=== PATIENT | male | born 1980 | race Caucasian/White ===

== ENCOUNTER → 2024-02-04 | Outpatient (CLI) | payer OTHER, SELFPAY ==
--- NOTE | 2024-02-04 10:06 | XR_ITS ---
EXAMINATION: Cervical spine, 5 views Technique: Cervical spine AP, AP odontoid, lateral, bilateral obliques, 5 views Exam date and time: February 04, 2024 1120 hours INDICATIONS: Neck pain beginning one month ago. FINDINGS: Satisfactory alignment cervical vertebral bodies No cervical fracture No neural foraminal stenosis No cervical disc narrowing Intact odontoid IMPRESSION: No cervical fracture No significant arthritic change
== END | disposition home or self-care (01) ==
LOC: CDIM 09:45
PROVIDERS: PCP Family Medicine; Referring Provider Orthopaedic Surgery; Visit Provider Orthopaedic Surgery
DX: M54.2 Cervicalgia (principal)
CPT/HCPCS: 72050

== ENCOUNTER → 2024-11-13 | Outpatient (CLI) | payer OTHER, SELFPAY ==
[2024-11-13 12:20] LABS: Collection Type, Urine Clean Catch; Squamous Epithelial Cell,Urine 0 /hpf (0-5)
[2024-11-13 13:06] LABS: Basophils # (Auto) 0.0 Thou/mm3 (0.0-0.2); Basophils % (Auto) 0 % (0-2.5); Eosinophils # (Auto) 0.2 Thou/mm3 (0.0-0.5); Eosinophils % (Auto) 2 % (0-10); Hematocrit 46.1 % (41.0-53.0); Hemoglobin 16.3 g/dL (13.5-16.0); Immature Granulocytes Auto 0.01 Thou/mm3 (0.00-0.00); Lymphocytes # (Auto) 2.2 Thou/mm3 (1.0-4.8); Lymphocytes % (Auto) 34 % (10-50); Mean Corpuscular HGB Conc 35.4 g/dl (31.0-37.0); Mean Corpuscular Hemoglobin 30.8 pg (25.0-35.0); Mean Corpuscular Volume 87 fL (80-100); Monocytes # (Auto) 0.5 Thou/mm3 (0.0-0.8); Monocytes % (Auto) 8 % (0-12); Neutrophils # (Auto) 3.5 Thou/mm3 (1.8-7.7); Neutrophils % (Auto) 55 % (37-80); Nucleated Red Blood Cell # 0.00 Thou/mm3 (0.00-0.00); Nucleated Red Blood Cell % 0 /100 WBC (0); Platelet Count 300 Thou/mm3 (140-440); RDW Standard Deviation 39.3 fL (35.1-43.9); Red Blood Count 5.30 Miln/mm3 (4.50-5.90); White Blood Count 6.3 Thou/mm3 (3.8-10.6)
[2024-11-13 13:10] LABS: Bilirubin,Urine Negative (Negative); Blood,Urine Negative (Negative); Clarity,Urine Clear (Clear/Hazy); Color,Urine Lt-Yellow (Lt Yel-Yel); Glucose, Urine Negative (Negative); Ketones,Urine Negative (Negative); Leukocyte Esterase,Urine Negative (Negative); Nitrite,Urine Negative (Negative); PH,Urine 7.0 (5.0-7.0); Protein,Urine Negative (Neg - Trace); RBC,Urine < 1 /hpf (0-3); Specific Gravity,Urine 1.012 (1.001-1.035); Urobilinogen,Urine Negative mg/dL (0.0-1.0); WBC,Urine < 1 /hpf (0-5)
[2024-11-13 13:28] LABS: Alanine Aminotransferase 31 U/L (10-49); Albumin, Serum 4.6 gm/dL (3.5-5.0); Albumin/Globulin Ratio 2.0 (1.2-2.2); Alkaline Phosphatase 100 U/L (46-116); Anion Gap 9 (7-16); Aspartate Amino Transferase 24 U/L (0-34); BUN/Creatinine Ratio 10 Ratio (12-20); Bilirubin,Total 0.7 mg/dL (0.3-1.2); Blood Urea Nitrogen 12 mg/dL (9-23); Calcium 10.1 mg/dL (8.3-10.6); Calcium (Corrected) 10.1 mg/dL (8.5-10.1); Carbon Dioxide 29.7 mMol/L (20.0-31.0); Cardiac Risk Estimate 4.9 RATIO (4.0-6.7); Chloride 104 mMol/L (98-107); Cholesterol 194 mg/dL (132-200); Creatinine (Component) 1.2 mg/dL (0.6-1.3); Globulin 2.3 gm/dL (2.3-3.5); Glucose 91 mg/dL (74-106); HDL Cholesterol 40 mg/dL (40-60); LDL Cholesterol,Calculated 129 mg/dL (0-130); Osmolality,Calculated 284 (275-295); Potassium 5.2 mMol/L (3.4-5.1); Sodium 143 mMol/L (136-145); Total Protein 6.9 gm/dL (5.7-8.2); Triglycerides 124 mg/dL (30-150); eGFR > 60 See Note
== END | disposition home or self-care (01) ==
LOC: COPL 11:26
PROVIDERS: PCP Family Medicine; Referring Provider Family Medicine; Visit Provider Family Medicine
DX: Z00.00 Encounter for general adult medical examination without abnormal findings (principal); E78.2 Mixed hyperlipidemia; L03.211 Cellulitis of face
CPT/HCPCS: 36415; 80053; 80061; 81001; 85025

== ENCOUNTER → 2025-02-02 | Outpatient (CLI) | payer OTHER, SELFPAY ==
--- NOTE | 2025-02-02 08:20 | XR_ITS ---
Examination: Right elbow 3 views Technique: Elbow AP, oblique, lateral 3 views Exam date and time: February 02, 2025, 0821 hours INDICATIONS: Left elbow pain after injury to the elbow 2 weeks ago. FINDINGS: No fracture or dislocation. No elbow effusion IMPRESSION: Negative study.
== END | disposition home or self-care (01) ==
PROVIDERS: PCP Family Medicine; Referring Provider Physician Assistant; Visit Provider Physician Assistant
DX: S59.902A Unspecified injury of left elbow, initial encounter (principal); X58.XXXA Exposure to other specified factors, initial encounter
CPT/HCPCS: 73080